=== PATIENT | male | born 1990 | race Hispanic/Latino ===

== ENCOUNTER 2018-08-25 14:11 | Emergency (ER) | payer BC ==
[2018-08-25 14:22] VITALS: RESP 18
[2018-08-25] MEDS ORDERED: Lidocaine Hydrochloride 5 ML INJ ONE (14:39)
[2018-08-25] MEDS ORDERED: Bacitracin 500 Units/gm Oint Foilpak UD ONE (15:06)
--- NOTE | 2018-08-25 15:10 | C.PDOC ---
History Of Present Illness 27 y/o male pt presents to the ER complaining of a laceration to his right 4th finger 1 hour ago. Pt was taking his garbage out when a broken plate cut him. Tetanus shot was received in 2009. Pt denies any other injuries, weakness, and change in sensation. Time Seen by Provider: 08/25/18 14:40 Chief Complaint (Nursing): Abnormal Skin Integrity History Per: Patient History/Exam Limitations: no limitations Onset/Duration Of Symptoms: Hrs (1) Current Symptoms Are (Timing): Still Present Location Of Injury: Right: Hand (base of 4th digit) Past Medical History Reviewed: Historical Data, Nursing Documentation, Vital Signs Vital Signs: Last Vital Signs Temp 97.5 F L 08/25/18 14:20 Pulse 65 08/25/18 14:20 Resp 18 08/25/18 14:20 BP 133/77 08/25/18 14:20 Pulse Ox 98 08/25/18 14:20 Family History: States: No Known Family Hx - Social History Hx Alcohol Use: No Hx Substance Use: No Review Of Systems Constitutional: Negative for: Other (other injuries) Skin: Positive for: Other (cut on base of 4th digit on right hand ) Neurological: Negative for: Other (change in sensation) Physical Exam - Physical Exam Appears: Well, Non-toxic, No Acute Distress Skin: Warm, Dry Head: Atraumatic, Normacephalic Eye(s): bilateral: Normal Inspection, EOMI Oral Mucosa: Moist Neck: Normal ROM, Supple Chest: Symmetrical Respiratory: No Accessory Muscle Use Extremity: Normal ROM, Capillary Refill (<2 sec), No Deformity, No Swelling, Other (1 cm laceration on the base of 4th digit on the right hand ) Pulses: Right Radial: Normal Neurological/Psych: Normal Motor, Normal Sensation ED Course And Treatment O2 Sat by Pulse Oximetry: 98 (RA) Progress Note: Wrap is applied on pt 4th and 5th digit on right hand. Pt was instructed wound care and instructed to f/u with PMD or ER in 7-10 days for suture removal. Laceration - Laceration Repair base of 4th digit, R hand Wound Length (In cm): 1 cm Description Of Wound: Linear, Clean Wound Cleansed With: Betadine, Sterile Saline Anesthesia: Lidocaine 1% Wound Examination: Irrigated With Saline, No FB With Wound Exploration, No Tendon Injury With Wound Exploration Wound Closure: Suture (1) Suture Technique And Material Used: Interrupted, Nylon (5-O) Wound Complexity: Simple Disposition - Disposition Disposition: HOME/ ROUTINE Disposition Time: 15:37 Condition: STABLE Additional Instructions: Wound check in 2 days. Suture removal in 7- 10days. Watch for signs of infection including redness, swelling and discharge. 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 - Scribe Statement The provider has reviewed the documentation as recorded by the Chandra Manning Do All medical record entries made by the Scribe were at my direction and personally dictated by me. I have reviewed the chart and agree that the record accurately reflects my personal performance of the history, physical exam, medical decision making, and the department course for this patient. I have also personally directed, reviewed, and agree with the discharge instructions and disposition.
[2018-08-25] MEDS ORDERED: Tdap Vaccine 0.5 ml Vial (10-64 yrs) IM ONE ×2 (15:39→15:48)
[2018-08-25] MEDS ORDERED: Bacitracin 500 Units/gm Oint Foilpak UD TOP ONE (15:39)
[2018-08-25] MEDS ORDERED: Lidocaine 1% Inj (20ml) INFIL ONE (15:39)
[2018-08-25 15:55] VITALS: BP 122/74; PULSE 64; TEMP 98.1
[2018-08-25 19:03] VITALS: O2SAT 98
== END 2018-08-25 16:00 | disposition home or self-care (01) ==
LOC: C.ER 14:11
DX: S61.214A Laceration without foreign body of right ring finger without damage to nail, initial encounter (principal); W45.8XXA Other foreign body or object entering through skin, initial encounter